=== PATIENT | male | born 1990 | race African-American/Black ===

== ENCOUNTER 2025-03-28 16:38 | Emergency (ER) | payer MEDICAID, OTHER ==
[~2025-03-28] VITALS: Ht 188 cm; Wt 91.0 kg
[2025-03-28 16:40] VITALS: O2SAT 98
[2025-03-28] MEDS: KETOROLAC 30MG/ML VIAL IM ONE (17:47)
[2025-03-28] MEDS: METOCLOPRAMIDE HCL 10MG TABLET PO ONE (17:47)
[2025-03-28] MEDS: DIPHENHYDRAMINE 25MG CAPSULE PO ONE (17:48)
[2025-03-28] MEDS ORDERED: IBUP-1455 MT (18:26)
[2025-03-28 18:40] VITALS: BP 145/93; PULSE 90; RESP 16; TEMP 36.4; O2SAT 99
== END 2025-03-28 18:41 | disposition home or self-care (01) ==
LOC: ER 16:38
DX: G43.909 Migraine, unspecified, not intractable, without status migrainosus (principal); J06.9 Acute upper respiratory infection, unspecified; J45.909 Unspecified asthma, uncomplicated; I10 Essential (primary) hypertension; Z91.013 Allergy to seafood; Z88.0 Allergy status to penicillin
CPT/HCPCS: 99283; 71045; 96372; J1885; Q0163; J8597